=== PATIENT | female | born 1985 | race Caucasian/White ===

== ENCOUNTER 2017-05-21 11:55 | Emergency (ER) | payer MEDICAID ==
[~2017-05-21] VITALS: Ht 167.6 cm; Wt 68.0 kg
[2017-05-21 11:59] VITALS: BP 91/54
--- NOTE | 2017-05-21 12:05 | NUR ---
PT AMBULATED TO BED 7.
--- NOTE | 2017-05-21 12:32 | NUR ---
32F BIB FAMILY C/O "LIGHT VAGINAL SPOTTING" X YESTERDAY; PT STATES NO SATURATION OF PADS AND NO CLOTTS AT THIS TIME; PT STATES 5 WEEKS AT THIS TIME; PT C/O BL LOWER ABDOMINAL "CRAMPING", NON-RADIATING, 3/10 AT THIS TIME; PT STATES NO TRAUMA OR INJURY AT THIS TIME; PT STATES NO N/V/D AT THIS TIME; ABDOMEN SOFT, NON-TENDER, ACTIVE BOWEL SOUNDS X 4 QUADRANTS; PT AA&OX4, PERRLA, BL LUNG SOUNDS CLEAR, RR EVEN/UNLABORED, SKIN IS WARM/DRY/INTACT AT THIS TIME, STEADY GAIT; PT RESTING IN BED WITH HOB ELEVATED AND IN LOWEST POSITION; POSITIONED FOR COMFORT;ER MD MADE AWARE OF STATUS. WILL CONTINUE TO [facility].
--- NOTE | 2017-05-21 12:40 | NUR ---
ER MD DR. LAU EVALUATING PT AT BEDSIDE.
--- NOTE | 2017-05-21 12:50 | NUR ---
JOCY MCGINNIS ACCOMPANIED ER MD DR. LAU FOR FEMALE PELVIC EXAM.
[2017-05-21 13:32] LABS: HEMATOCRIT 37.4 % (36-48); HEMOGLOBIN 12.4 g/dL (12.0-16.0); MEAN CORPUSCULAR HEMOGLOBIN 31 pg (27-31); MEAN CORPUSCULAR HGB CONC 33 g/dL (33-37); MEAN CORPUSCULAR VOLUME 92 fL (80-94); PLATELET COUNT (AUTO) 205 K/uL (140-450); RED BLOOD CELL COUNT(AUTO) 4.07 MIL/uL (4.20-5.40); RED CELL DISTRIBUTION WIDTH 11.8 % (11.6-13.7); WHITE BLOOD COUNT (AUTO) 5.7 K/uL (4.8-10.8)
--- NOTE | 2017-05-21 14:00 | NUR ---
PT APPEARS TO BE RESTING COMFORTABLY IN BED; RR EVEN/UNLABORED; POSITIONED FOR COMFORT; WILL CONTINUE TO MONITOR.
[2017-05-21 14:03] LABS: LYMPHOCYTES % (MANUAL) 29 % (20-46); MONOCYTES % (MANUAL) 6 % (5-12)
[2017-05-21 14:50] LABS: APPEARANCE,URINE CLEAR (CLEAR); BILIRUBIN,URINE NEGATIVE (NEGATIVE); BLOOD, URINE 2+ (NEGATIVE); COLOR,URINE YELLOW (YELLOW); LEUKOCYTE ESTERASE ,URINE NEGATIVE (NEGATIVE); NITRITE, URINE NEGATIVE (NEGATIVE); PH,URINE 6.5 (5.0-9.0); UGLUCOSE NEGATIVE (NEGATIVE)
[2017-05-21 15:14] LABS: RBC,URINE 0-5 (RARE) /HPF (0-5); WBC,URINE 0-5 (RARE) /HPF (0-5)
[2017-05-21 15:39] VITALS: BP 118/62
--- NOTE | 2017-05-21 15:39 | NUR ---
LABS AND ULTRASOUND REPORT HANDED TO PT Patient discharged with v/s stable. Written and verbal after care instructions given and explained. Patient verbalized understanding. Ambulatory with steady gait. All questions addressed prior to discharge. Advised to follow up with PMD.
== END 2017-05-21 15:39 | disposition home or self-care (01) ==
LOC: MED 11:55
DX: O20.0 Threatened abortion (principal); Z3A.01 Less than 8 weeks gestation of pregnancy; Z95.1 Presence of aortocoronary bypass graft
CPT/HCPCS: 36415; 76817; 81001; 81025; 84702; 85025; 86900; 86901; 99285; Q0092

== ENCOUNTER 2018-09-22 17:47 | Emergency (ER) | payer MEDICAID ==
[~2018-09-22] VITALS: Ht 167.6 cm; Wt 72.1 kg
[2018-09-22 17:59] VITALS: BP 127/70
--- NOTE | 2018-09-22 18:10 | NUR ---
PT AMBULATES TO BED 2
--- NOTE | 2018-09-22 18:15 | NUR ---
33Y/F BIB SELF C/O DYSURIA WITH FOUL SMELL URINE SINCE YESTERDAY. PT PAIN RADIATES TO THE BACK. NO BURNING SENSATION WITH URINATION, DENIED N/V/D OR FEVER. PT IS AAOX4, VSS, BED DOWN, BEDRAIL UP X 1, ER MD AWARE AND NOTIFIED OF PT STATUS DENIES PMH
[2018-09-22] MEDS ORDERED: PHENAZOPYRIDINE 100 MG TAB PO ONE (18:45)
[2018-09-22] MEDS ORDERED: cefTRIAXone 1,000 MG in LIDOCAINE MPF 1% - 5 mL VIAL 2.1 ML IM ONE (18:45)
[2018-09-22 19:01] LABS: APPEARANCE,URINE HAZY (CLEAR); BILIRUBIN,URINE NEGATIVE (NEGATIVE); BLOOD, URINE 1+ (NEGATIVE); COLOR,URINE YELLOW (YELLOW); LEUKOCYTE ESTERASE ,URINE TRACE (NEGATIVE); NITRITE, URINE POSITIVE (NEGATIVE); UGLUCOSE NEGATIVE (NEGATIVE)
--- NOTE | 2018-09-22 19:05 | NUR ---
Recieved report from Karen SANDRA. Pt requesting pain medication before discharge. Dr Christine notified. Awaiting orders. Continue to monitor.
[2018-09-22 19:06] LABS: WBC,URINE 16-25 (MOD) /HPF (0-5)
[2018-09-22] MEDS ORDERED: KETOROLAC 30 MG/ML VIAL IM ONE (19:45)
[2018-09-22 20:13] VITALS: BP 122/71
--- NOTE | 2018-09-22 20:18 | NUR ---
Discharge orders provided. Decreased pain 09/01. No urinary burning. No n/v. Afebrile. VSS. Given RX for Naprosyn, Phenazopyridine, and Keflex. Possible side effects explained. Pt verbalized understanding of DC instructions. All questions answered.
== END 2018-09-22 20:13 | disposition home or self-care (01) ==
LOC: MED 17:47
DX: N39.0 Urinary tract infection, site not specified (principal); K59.00 Constipation, unspecified; F17.210 Nicotine dependence, cigarettes, uncomplicated; Z90.49 Acquired absence of other specified parts of digestive tract; Z98.890 Other specified postprocedural states
CPT/HCPCS: 81001; 81025; 87086; 96372; 99283; J0696; J1885; J2001; 87186

== ENCOUNTER 2020-01-26 15:27 | Emergency (ER) | payer MEDICAID ==
[~2020-01-26] VITALS: Ht 167.6 cm; Wt 68.9 kg
[2020-01-26 15:35] VITALS: BP 122/71
[2020-01-26] MEDS ORDERED: KETOROLAC 30 MG/ML VIAL IM ONE (15:50)
[2020-01-26] MEDS ORDERED: PHENAZOPYRIDINE 100 MG TAB PO ONE (15:55)
[2020-01-26] MEDS ORDERED: cefTRIAXone 1,000 MG in LIDOCAINE MPF 1% 2.1 ML IM ONE (15:55)
[2020-01-26] MEDS ORDERED: cefTRIAXone 1,000 MG VIAL ONE (15:55)
[2020-01-26] MEDS ORDERED: LIDOCAINE MPF 1% 5 ML ONE (15:56)
[2020-01-26 16:10] VITALS: BP 132/81
== END 2020-01-26 16:11 | disposition home or self-care (01) ==
LOC: MED 15:27
DX: N39.0 Urinary tract infection, site not specified (principal); Z90.49 Acquired absence of other specified parts of digestive tract; Z98.890 Other specified postprocedural states
CPT/HCPCS: 81002; 81025; 87086; 87186; 96372; 99283; J0696; J2001; J1885

== ENCOUNTER 2020-01-29 17:09 | Emergency (ER) | payer MEDICAID ==
[~2020-01-29] VITALS: Ht 167.6 cm; Wt 69.4 kg
[2020-01-29 17:12] VITALS: BP 102/64
[2020-01-29] MEDS ORDERED: KETOROLAC 60 MG/2 ML VIAL IM ONE (17:40)
[2020-01-29 17:53] VITALS: BP 102/64
== END 2020-01-29 17:55 | disposition home or self-care (01) ==
LOC: MED 17:09
DX: M54.9 Dorsalgia, unspecified (principal); R10.9 Unspecified abdominal pain; F17.210 Nicotine dependence, cigarettes, uncomplicated; Z98.890 Other specified postprocedural states
CPT/HCPCS: 81002; 81025; 96372; 99283; J1885

== ENCOUNTER 2021-12-09 10:18 | Emergency (ER) | payer MEDICAID ==
[~2021-12-09] VITALS: Ht 162.6 cm; Wt 77.1 kg
[2021-12-09 10:25] VITALS: BP 103/83
--- NOTE | 2021-12-09 10:29 | NUR ---
PT AMBULATED TO BED 11.
--- NOTE | 2021-12-09 10:50 | NUR ---
36YO FEMALE PT C/O SOB AND CHEST PAIN X1DAY. PT STATES 4/10 TIGHT CHEST PAIN WITH RADIATION TO UPPER BACK. PT STATES HAVING COUGH X3 WEEKS THAT WILL CAUSE SOB. PT DENIES N/V/D OR FEVERS. PT STATES TAKING IBURPOFEN LAST NIGHT WITH NO RELIEF. PT PRESENTS WITH MOIST NON PRODUCTIVE COUGH. RESPIRATIONS EVEN AND UNLABORED. PT AAOX4, WARM TO TOUCH. BP 103/67, P 69, R 17 ,T 98.6 TEMPORAL AND O2 100% ROOM AIR. PT PUT ON MONITOR, BED AT LOWEST POSITION AND BED RAIL UP X1. NHX NKA
--- NOTE | 2021-12-09 11:08 | NUR ---
XRAY AT BEDSIDE
[2021-12-09] MEDS ORDERED: ALBU0.0912 INH (12:34)
--- NOTE | 2021-12-09 12:55 | NUR ---
PT SWABBED FOR COVID(LISSETT), RSV AND FLU
[2021-12-09 13:00] VITALS: BP 107/64
--- NOTE | 2021-12-09 13:12 | NUR ---
Patient discharged with v/s stable. Written and verbal after care instructions FOR ACUTE BRONCHIITIS given and explained. Patient alert, oriented and verbalized understanding of instructions. Ambulatory with steady gait. All questions addressed prior to discharge. ID band removed. Patient advised to follow up with PMD. Rx of ALBUTEROL SULFATE given. Opportunity to ask questions provided and answered.
--- NOTE | 2021-12-09 13:32 | NUR ---
The patient's care was reviewed and supervised by Eli Bautista, RN, RN.
[2021-12-09 14:39] LABS: RSV NEGATIVE (NEGATIVE)
== END 2021-12-09 13:12 | disposition home or self-care (01) ==
LOC: MED 10:18
DX: J40 Bronchitis, not specified as acute or chronic (principal); Z20.822 Contact with and (suspected) exposure to COVID-19
CPT/HCPCS: 71045; 87420; 87426; 87804; 99284; Q0092